=== PATIENT | male | born 1990 | race African-American/Black ===

== ENCOUNTER 2017-11-23 10:47 | Emergency (ER) | payer OTHER ==
[2017-11-23 11:13] LABS: BILIRUBIN,URINE NEGATIVE (NEGATIVE); GLUCOSE, URINE (UA) NEGATIVE (NEGATIVE); KETONES,URINE (UA) NEGATIVE (NEGATIVE); LEUKOCYTE ESTERASE, URINE NEGATIVE (NEGATIVE); NITRITE,URINE NEGATIVE (NEGATIVE); OCCULT BLOOD,URINE TRACE-INTA (NEGATIVE); PROTEIN,URINE NEGATIVE (NEGATIVE); UROBILINOGEN,URINE 0.2 (NORMAL) E.U./dL (NORMAL)
[2017-11-23 11:14] LABS: CLARITY,URINE CLEAR (CLEAR)
[2017-11-23] MEDS ORDERED: cefTRIAXone 250 MG VIAL IM STA (11:17)
[2017-11-23] MEDS ORDERED: LIDOCAINE 1% 2 ML VIAL SUBQ ONE (11:17)
[2017-11-23] MEDS ORDERED: AZITHROMYCIN 250 MG TABLET PO STA (11:17)
--- NOTE | 2017-11-23 11:21 | ED Physician Documentation ---
History of Present Illness - Stated complaint Stated Complaint: MALE - Chief complaint Chief Complaint: General - Additonal information Additional information: hx from pt 27 y/o AD male to ER for STD check has sore throat and green penile dc and dysria no testicular pain Review of Systems Constitutional: denies: Fever Throat: reports: Sore throat : reports: Dysuria, Discharge. denies: Testicular pain PD PAST MEDICAL HISTORY - Past Medical History Past Medical History: No - Past Surgical History Past Surgical History: No - Present Medications Home Medications: Ambulatory Orders Medication Instructions Recorded Confirmed Cholecalciferol (Vitamin D3) 11/23/17 [Vitamin D3] - Allergies Allergies/Adverse Reactions: Allergies Allergy/AdvReac Type Severity Reaction Status Date / Time No Known Drug Allergies Allergy Verified 11/23/17 10:58 - Social History Does the pt smoke?: Yes Smoking Status: Current every day smoker Does the pt drink ETOH?: No Does the pt have substance abuse?: No - Immunizations Immunizations are current?: Yes PD ED PE NORMAL - Vitals Vital signs reviewed: Yes - HEENT HEENT: Moist mucous membranes. No: Pharynx benign (erytehma) - Neck Neck: Supple, no meningeal sign - Cardiac Cardiac: RRR - Respiratory Respiratory: No respiratory distress, Clear bilaterally - Abdomen Abdomen: Soft, Non tender - Male Male : Other (uncirc, no lesions, purulent dc, no tsticlar pain or mass, nl lie no hernia) Results - Vitals Vitals: Vital Signs - 24 hr 11/23/17 11/23/17 10:54 12:08 Temperature 36.7 C 36.7 C Heart Rate 91 88 Respiratory 18 18 Rate Blood Pressure 139/98 H 129/87 H O2 Saturation 99 100 Oxygen O2 Source Room air - Labs Labs: Laboratory Tests 11/23/17 11/23/17 10:59 11:11 Urine Color YELLOW Urine Clarity CLEAR Urine pH 6.0 Ur Specific [place] <=1.005 Urine Protein NEGATIVE Urine Glucose (UA) NEGATIVE Urine Ketones NEGATIVE Urine Occult Blood TRACE-INTA Urine Nitrite NEGATIVE Urine Bilirubin NEGATIVE Urine Urobilinogen 0.2 (NORMAL) Ur Leukocyte Esterase NEGATIVE Ur Microscopic Review NOT INDICATED Urine Culture Comments NOT INDICATED Group A Strep Rapid Negative PD MEDICAL DECISION MAKING - ED course ED course: empirically tx ed for GC and chlamydia Departure - Departure Disposition: 01 Home, Self Care Clinical Impression: STD (male) Condition: Good Instructions: ED STD Male Treated Follow-Up: [facility] [Provider Group] Comments: Your symptoms do look like an STD You have been presumptively treated for gonorrhea and chlamydia The cultures will be back in about 3 days - you will called if they are positive - also you can call the ER at for results If you have concerns that you may have been exposed to HIV or hepatitis you need to follow up at [facility] for that testing Discharge Date/Time: 11/23/17 12:08
[2017-11-23 12:09] VITALS: BP 129/87
== END 2017-11-23 12:08 | disposition home or self-care (01) ==
LOC: ED 10:47
DX: A64 Unspecified sexually transmitted disease (principal); F17.200 Nicotine dependence, unspecified, uncomplicated
CPT/HCPCS: 81003; 87070; 87430; 87491; 87591; 96372; 99283; A9270; 81001; 87086